=== PATIENT | male | born 1990 | race Caucasian/White ===

== ENCOUNTER 2019-05-11 01:45 | Inpatient (IN) | payer BC ==
[~2019-05-11] VITALS: Ht 175.3 cm; Wt 99.8 kg
[~2019-05-11 01:45] MED LIST: ERYT.5TO LEFTEYE; HYDACE5 PO; IBUP800 PO; INSLI100I; LEVSOD100
[2019-05-11] MEDS ORDERED: INSULIN LI100 UNIT/1 (02:02)
[2019-05-11 02:26] LABS: BASOPHILS ABSOLUTE AUTO 0.06 K/mm3 (0.00-0.23); BASOPHILS PERCENT AUTO 0 % (0-2); EOSINOPHILS ABSOLUTE AUTO 0.02 K/mm3 (0.00-0.68); EOSINOPHILS PERCENT AUTO 0 % (0-6); Hematocrit 52.7 % (37.0-53.0); Hemoglobin 17.2 g/dL (13.5-17.5); IMMATURE GRAN ABSOLUTE AUTO 0.13 K/mm3 (0.00-0.10); IMMATURE GRAN PERCENT AUTO 1 % (0-1); LYMPHOCYTES ABSOLUTE AUTO 0.93 K/mm3 (0.84-5.20); LYMPHOCYTES PERCENT AUTO 5 % (21-46); MONOCYTES ABSOLUTE AUTO 1.15 K/mm3 (0.16-1.47); MONOCYTES PERCENT AUTO 6 % (4-13); Mean Corpuscular HGB 30.9 pg (26.0-34.0); Mean Corpuscular HGB Conc 32.6 g/dL (31.5-36.5); Mean Corpuscular Volume 95 fL (80-100); Mean Platelet Volume 10.6 fL (9.1-12.4); NEUTROPHILS ABSOLUTE AUTO 16.26 K/mm3 (1.96-9.15); NEUTROPHILS PERCENT AUTO 88 % (41-73); Platelet Count 316 K/mm3 (150-400); RDW Standard Deviation 42.5 fL (35.1-46.3); Red Blood Cell Count 5.56 M/mm3 (4.30-5.90); White Blood Cell Count 18.55 K/mm3 (4.00-11.30)
[2019-05-11 02:44] LABS: Ethanol (Alcohol), Blood, Med <3 mg/dL
[2019-05-11 02:48] LABS: Alanine Aminotransfer (ALT/SGP 36 U/L (12-78); Albumin/Globulin Ratio 1.1 (0.8-1.8); Alk Phos 85 U/L (50-136); Anion Gap 26 mmol/L (6-16); Aspartate Aminotrans (AST/SGOT 28 U/L (12-37); Bilirubin, Total 0.7 mg/dL (0.1-1.0); Blood Urea Nitrogen 28 mg/dL (8-24); Bun/Creatinine Ratio 21.9 (12.0-20.0); CO2, Blood 8 mmol/L (21-32); Calcium, Blood 9.3 mg/dL (8.5-10.1); Chloride, Blood 96 mmol/L (98-108); Creatinine, Blood 1.28 mg/dL (0.60-1.20); Globulin, Blood 4.6 g/dL (2.2-4.0); Glomerular Filtration Rate >60 (60-); Glucose, Blood 471 mg/dL (70-99); Potassium, Blood 5.5 mmol/L (3.5-5.5); Sodium, Blood 130 mmol/L (136-145); Total Protein, Blood 9.6 g/dL (6.4-8.2)
--- NOTE | 2019-05-11 06:41 | NUR ---
ASSUMED CARE NOTE/END OF SHIFT. ASSUMED CARE OF PT AT 0540, RECEIVED REPORT FROM JAYLEN RAJAN RN. PT ARRIVED TO UNIT VIA STRETCHER. PT AMBULATED SELF TO HOSPITAL BED WITH STAND BY ASSISTANCE. PT UBSTEADY WITH AMBULATION. PT IS ALERT AND ORIENTEDX3. PT IS ABLE TO ANSWER QUESTIONS APPROPRIATLEY. PT IS ON RA WITH SPO2 @ 98% PT IN SINUS TACH WITH HR @ 115. PT DENIES ANY SOB OR CHEST PAIN AT THIS TIME. PT IS C/O NAUSEA, MEDICATED PT PER EMAR. ABDOMINAL TENDERNESS NOTED. BOWEL TONES HEARD IN ALL FOUR QUADRANTS. PT WAS ORIENTED TO ROOM, AND CALL LIGHT. PT HAS URINAL AT BEDSIDE. PT IS AFEBRILE. INSULIN DRIP @ 7U/HR, AND BANANA BAG @ 200ML/HR. WILL CONTINUE TO MONITOR PT UNTIL REPORT IS GIVEN TO ONCOMING SHIFT
[2019-05-11 07:54] LABS: Anion Gap 15 mmol/L (6-16); Blood Urea Nitrogen 23 mg/dL (8-24); Bun/Creatinine Ratio 24.8 (12.0-20.0); CO2, Blood 11 mmol/L (21-32); Calcium, Blood 8.4 mg/dL (8.5-10.1); Chloride, Blood 107 mmol/L (98-108); Creatinine, Blood 0.93 mg/dL (0.60-1.20); Glomerular Filtration Rate >60 (60-); Glucose, Blood 284 mg/dL (70-99); Potassium, Blood 5.4 mmol/L (3.5-5.5); Sodium, Blood 133 mmol/L (136-145)
[2019-05-11 11:15] LABS: BASOPHILS ABSOLUTE AUTO 0.03 K/mm3 (0.00-0.23); BASOPHILS PERCENT AUTO 0 % (0-2); EOSINOPHILS PERCENT AUTO 0 % (0-6); Hematocrit 46.3 % (37.0-53.0); Hemoglobin 15.3 g/dL (13.5-17.5); IMMATURE GRAN ABSOLUTE AUTO 0.06 K/mm3 (0.00-0.10); IMMATURE GRAN PERCENT AUTO 0 % (0-1); LYMPHOCYTES ABSOLUTE AUTO 0.75 K/mm3 (0.84-5.20); LYMPHOCYTES PERCENT AUTO 5 % (21-46); MONOCYTES ABSOLUTE AUTO 1.42 K/mm3 (0.16-1.47); MONOCYTES PERCENT AUTO 10 % (4-13); Mean Corpuscular HGB 30.5 pg (26.0-34.0); Mean Corpuscular Volume 92 fL (80-100); Mean Platelet Volume 10.3 fL (9.1-12.4); NEUTROPHILS ABSOLUTE AUTO 12.48 K/mm3 (1.96-9.15); NEUTROPHILS PERCENT AUTO 85 % (41-73); Platelet Count 241 K/mm3 (150-400); RDW Coefficient Variation 12.4 % (11.7-14.2); RDW Standard Deviation 41.8 fL (35.1-46.3); Red Blood Cell Count 5.02 M/mm3 (4.30-5.90); White Blood Cell Count 14.74 K/mm3 (4.00-11.30)
[2019-05-11 11:39] LABS: Anion Gap 10 mmol/L (6-16); Blood Urea Nitrogen 19 mg/dL (8-24); Bun/Creatinine Ratio 21.3 (12.0-20.0); CO2, Blood 18 mmol/L (21-32); Calcium, Blood 8.6 mg/dL (8.5-10.1); Chloride, Blood 107 mmol/L (98-108); Creatinine, Blood 0.89 mg/dL (0.60-1.20); Glomerular Filtration Rate >60 (60-); Glucose, Blood 219 mg/dL (70-99); Potassium, Blood 4.3 mmol/L (3.5-5.5); Sodium, Blood 135 mmol/L (136-145)
--- NOTE | 2019-05-11 12:05 | NUR ---
REASSESSMENT: PT HAS BEEN RESTING IN BED THROUGHOUT THE MORNING. HE SLEEPS WHEN UNDISTURBED, BUT WAKES EASILY. INSULIN GTT INFUSING AND BEING TITRATED PER CBG, SEE FLOW SHEET. LABS NORMALIZING, BUT CO2 STILL LOW. PT'S MOTHER CAME BY AND WAS UPDATED. CONTINUING TO MONITOR.
[2019-05-11 15:33] LABS: Anion Gap 6 mmol/L (6-16); Blood Urea Nitrogen 19 mg/dL (8-24); Bun/Creatinine Ratio 26.2 (12.0-20.0); CO2, Blood 20 mmol/L (21-32); Calcium, Blood 8.5 mg/dL (8.5-10.1); Chloride, Blood 108 mmol/L (98-108); Creatinine, Blood 0.73 mg/dL (0.60-1.20); Glomerular Filtration Rate >60 (60-); Glucose, Blood 175 mg/dL (70-99); Potassium, Blood 3.9 mmol/L (3.5-5.5); Sodium, Blood 134 mmol/L (136-145)
--- NOTE | 2019-05-11 16:46 | NUR ---
SHIFT SUMMARY: PT HAS CONTINUED TO REST THROUGHOUT THE SHIFT. DR. WU CAME BY AND GAVE ORDERS TO SWITCH PT TO SQ INSULIN WAS CO2 WAS 20. REPEAT BMP HAD CO2 OF 20 SO NPH GIVEN PER ORDERS AND WILL TURN OFF INSULIN GTT 30 MIN AFTER ADMIN PER DR. WU. PT REMAINS ALERT AND ORIENTED, LUNGS CLEAR, RA, SR WITH RATE IN THE 90S, BP STABLE. NO N/V SO DR. WU GAVE OK FOR PT TO HAVE CLEAR LIQUIDS AND ADVANCE TOLERATED. ONCE PT OFF OF INSULIN GTT DR. WU GAVE OORDER FOR MED WITHOUT TELE. NO OTHER REQUESTS FROM PT AT THIS TIME. CONTINUING TO MONITOR.
--- NOTE | 2019-05-11 21:18 | NUR ---
PT RESTING IN BED. DENIES PAIN, N/V, GALLAGHER, HALLUCINATIONS. SEE CIWA ASSESS. PT IS TOLERATING CL DIET WELL. OFFERED SNACK AFTER GIVING INSULIN PT DENIES FOR NOW. NO SIGN OF DISTRESS. CALL LIGHT IN REACH.
--- NOTE | 2019-05-11 22:00 | NUR ---
PT TRANSFERED TO ROOM 228 VIA W/C. ACCOMPANIED BY SUCTION DREDGE DUMPING SUPERVISOR. NO SIGN OF DISTRESS. REPORT GIVEN TO EFRA ARCHIBALD WHO WILL ASSUME CARE.
--- NOTE | 2019-05-11 22:12 | NUR ---
PT ARRIVED TO UNIT FROM ICU. PT AA0X4, VSS. LUNG SOUNDS CLEAR. PT REQUESTED SOLID FOOD. TOLERATING WELL CURRENTLY. PT SITTING UP IN BED, DENIES NEEDS AT THIS TIME. CALL LIGHT IN REACH ORIENTED TO UNIT.
--- NOTE | 2019-05-12 04:22 | NUR ---
SHIFT SUMMARY AAOX4, VSS. PT HAS BEEN RESTING IN BED SINCE TRANSFERING FROM ICU. BLOOD SUGARS IN 200'S CHECKED PER PT REQUEST AFTER EATING SANDWICH. CIWA SCORES 1 OR LESS DENIES AND ANXIETY OR HALLUCINATIONS. DENIES ANY NEEDS. CALL LIGHT IN REACH.
[2019-05-12 05:15] LABS: Anion Gap 7 mmol/L (6-16); Blood Urea Nitrogen 15 mg/dL (8-24); Bun/Creatinine Ratio 16.5 (12.0-20.0); CO2, Blood 25 mmol/L (21-32); Calcium, Blood 8.5 mg/dL (8.5-10.1); Chloride, Blood 105 mmol/L (98-108); Creatinine, Blood 0.91 mg/dL (0.60-1.20); Glomerular Filtration Rate >60 (60-); Glucose, Blood 205 mg/dL (70-99); Potassium, Blood 3.9 mmol/L (3.5-5.5); Sodium, Blood 137 mmol/L (136-145)
--- NOTE | 2019-05-12 13:52 | NUR ---
DISCHARGE SUMMARY: PT DISCHARGED HOME AT APPROX 1445. DISCHARGE INSTRUCTIONS GIVEN AND PT AWARE OF FOLLOW-UP APPOINTMENTS WITH PCP AND CLINICAL PSYCHIATRIST. REVIEWED WITH PATIENT REGARDING IMPORTANCE OF MAINTAINING BLOOD SUGARS BELOW 200 AND A HGB A1C OF LESS THAN 7%. PT ALSO EDUCATED ON WHEN TO CHECK BLOOD SUGARS AND WHAT S/SX TO BE AWARE OF. PT REPORTS UNDERSTANDING OF INFORMATION/EDUCATION GIVEN. PT WITHOUT QUESTIONS OR CONCERNS.
== END 2019-05-12 13:45 | disposition home or self-care (01) | DRG 638 ==
LOC: ER 01:45 → ICUE 04:13 → ERHOLD 04:13 → ICUE 05:36 → SURS 21:59
PROVIDERS: Emergency Medicine; Internal Medicine; ADMIT Hospitalist
DX: E10.10 Type 1 diabetes mellitus with ketoacidosis without coma (principal); E87.1 Hypo-osmolality and hyponatremia; F10.239 Alcohol dependence with withdrawal, unspecified; Z96.41 Presence of insulin pump (external) (internal); Z79.4 Long term (current) use of insulin; F41.9 Anxiety disorder, unspecified; F32.9 Major depressive disorder, single episode, unspecified
CPT/HCPCS: 36415; 80048; 80053; 82947; 85025; A9270-GY; G0480; J1815; J2060; J2405; J3411; J3475; J7030; J7042

== ENCOUNTER 2022-01-09 13:51 | Inpatient (IN) | payer OTHER ==
[~2022-01-09] VITALS: Ht 177.8 cm; Wt 93.0 kg
[~2022-01-09 13:51] MED LIST changes: +INSULIN LI100 UNIT/1
[2022-01-09 14:41] LABS: BASOPHILS ABSOLUTE AUTO 0.09 K/mm3 (0.00-0.23); BASOPHILS PERCENT AUTO 0 % (0-2); EOSINOPHILS PERCENT AUTO 0 % (0-6); Hemoglobin 22.8 g/dL (13.5-17.5); IMMATURE GRAN ABSOLUTE AUTO 0.13 K/mm3 (0.00-0.10); IMMATURE GRAN PERCENT AUTO 1 % (0-1); LYMPHOCYTES ABSOLUTE AUTO 0.88 K/mm3 (0.84-5.20); LYMPHOCYTES PERCENT AUTO 3 % (21-46); MONOCYTES ABSOLUTE AUTO 0.96 K/mm3 (0.16-1.47); MONOCYTES PERCENT AUTO 4 % (4-13); Mean Corpuscular HGB 30.8 pg (26.0-34.0); Mean Corpuscular HGB Conc 34.7 g/dL (31.5-36.5); Mean Corpuscular Volume 89 fL (80-100); Mean Platelet Volume 10.7 fL (9.1-12.4); NEUTROPHILS ABSOLUTE AUTO 23.59 K/mm3 (1.96-9.15); NEUTROPHILS PERCENT AUTO 92 % (41-73); Platelet Count 323 K/mm3 (150-400); RDW Coefficient Variation 13.6 % (11.7-14.2); Red Blood Cell Count 7.41 M/mm3 (4.30-5.90); White Blood Cell Count 25.65 K/mm3 (4.00-11.30)
[2022-01-09 14:42] LABS: Base Excess Venous -8.6 mmol/L; Bicarbonate Venous 18.9 mmol/L (24.0-30.0); Hematocrit 65.8 % (37.0-53.0); PCO2 Venous 32.6 mmHg (38-42); pH Blood Venous 7.33 (7.34-7.37)
[2022-01-09 15:15] LABS: Albumin, Blood 4.6 g/dL (3.4-5.0); Bilirubin, Total 1.9 mg/dL (0.1-1.0); Calcium, Blood 15.3 mg/dL (8.5-10.1); Creatinine, Blood 2.05 mg/dL (0.60-1.20); Globulin, Blood 4.7 g/dL (2.2-4.0); Potassium, Blood 3.8 mmol/L (3.5-5.5); Total Protein, Blood 9.3 g/dL (6.4-8.2)
[2022-01-09 17:34] LABS: Magnesium, Blood 2.2 mg/dL (1.6-2.4)
[2022-01-09 18:02] LABS: Beta-hydroxybutyrate 57.8 mg/dL (0.2-2.8); Bun/Creatinine Ratio 25.8 (12.0-20.0); Calcium, Blood 13.7 mg/dL (8.5-10.1); Creatinine, Blood 1.59 mg/dL (0.60-1.20); Phosphorus, Blood 3.5 mg/dL (2.5-4.9); Potassium, Blood 3.4 mmol/L (3.5-5.5)
[2022-01-09 19:13] LABS: Source, Urine Clean Catch
[2022-01-09 19:32] LABS: Appearance, Urine Clear (Clear); Bilirubin, Urine Neg (Neg); Blood, Urine 4+ (Neg); Color, Urine Amber (P-Yellow); Glucose Qualitative, Urine 4+ (Neg); Ketones, Urine 4+ (Neg); Leukocyte Esterase, Urine Neg (Neg); Nitrite, Urine Neg (Neg); Protein, Urine 3+ (Neg); Specific Gravity, Urine 1.015 (1.003-1.022); Urobilinogen, Urine NORM (Normal)
[2022-01-09 19:56] LABS: Bacteria Mod /hpf; Squamous Epithelial Cells Rare /hpf (Few)
[2022-01-09 20:44] LABS: Magnesium, Blood 2.3 mg/dL (1.6-2.4)
[2022-01-09 20:56] LABS: Calcium, Blood 13.4 mg/dL (8.5-10.1); Creatinine, Blood 1.32 mg/dL (0.60-1.20); Phosphorus, Blood 3.7 mg/dL (2.5-4.9); Potassium, Blood 3.8 mmol/L (3.5-5.5)
[2022-01-09 22:21] LABS: U Amphetamine Screen Not Detected; U Barbituate Screen Not Detected; U Benzodiazapine Screen Not Detected; U Buprenorphine Screen Not Detected; U Cannabinoids Screen Not Detected; U Cocaine Screen Not Detected; U Methadone Screen Not Detected; U Methamphetamine Screen Not Detected; U Opiates Screen Not Detected; U Oxycodone Screen Not Detected; U Phencyclidine Screen Not Detected; U Propoxyphene Screen Not Detected
[2022-01-10 01:50] LABS: BASOPHILS ABSOLUTE AUTO 0.07 K/mm3 (0.00-0.23); BASOPHILS PERCENT AUTO 0 % (0-2); EOSINOPHILS PERCENT AUTO 0 % (0-6); Hematocrit 52.5 % (37.0-53.0); Hemoglobin 18.5 g/dL (13.5-17.5); IMMATURE GRAN ABSOLUTE AUTO 0.15 K/mm3 (0.00-0.10); IMMATURE GRAN PERCENT AUTO 1 % (0-1); LYMPHOCYTES ABSOLUTE AUTO 0.79 K/mm3 (0.84-5.20); LYMPHOCYTES PERCENT AUTO 4 % (21-46); MONOCYTES ABSOLUTE AUTO 1.35 K/mm3 (0.16-1.47); MONOCYTES PERCENT AUTO 6 % (4-13); Mean Corpuscular HGB 30.9 pg (26.0-34.0); Mean Corpuscular HGB Conc 35.2 g/dL (31.5-36.5); Mean Corpuscular Volume 88 fL (80-100); Mean Platelet Volume 10.4 fL (9.1-12.4); NEUTROPHILS ABSOLUTE AUTO 20.32 K/mm3 (1.96-9.15); NEUTROPHILS PERCENT AUTO 90 % (41-73); Platelet Count 193 K/mm3 (150-400); RDW Coefficient Variation 12.9 % (11.7-14.2); RDW Standard Deviation 41.9 fL (35.1-46.3); Red Blood Cell Count 5.99 M/mm3 (4.30-5.90); White Blood Cell Count 22.68 K/mm3 (4.00-11.30)
[2022-01-10 02:15] LABS: Magnesium, Blood 1.7 mg/dL (1.6-2.4); Thyroid Stimulating Hormone 0.447 uIU/mL (0.360-4.800)
[2022-01-10 02:23] LABS: Bun/Creatinine Ratio 30.2 (12.0-20.0); Creatinine, Blood 0.93 mg/dL (0.60-1.20); Phosphorus, Blood 3.5 mg/dL (2.5-4.9); Potassium, Blood 4.2 mmol/L (3.5-5.5)
[2022-01-10 02:24] LABS: Calcium, Blood 10.5 mg/dL (8.5-10.1)
[2022-01-10 06:28] LABS: Hemoglobin 19.2 g/dL (13.5-17.5); Mean Corpuscular HGB 30.8 pg (26.0-34.0); Mean Corpuscular Volume 91 fL (80-100); Mean Platelet Volume 10.6 fL (9.1-12.4); Platelet Count 184 K/mm3 (150-400); RDW Coefficient Variation 13.1 % (11.7-14.2); RDW Standard Deviation 43.7 fL (35.1-46.3); Red Blood Cell Count 6.23 M/mm3 (4.30-5.90); White Blood Cell Count 25.03 K/mm3 (4.00-11.30)
--- NOTE | 2022-01-10 06:39 | NUR ---
PATIENT ARRIVED TO UNIT AT 2029. DIAGNOSIS OF DKA/ETOH WITHDRAWAL. PATENT LETHARGIC BUT ORIENTED. ATTACHED TO MONITORS AND ORIENTED TO UNIT. DURING SHIFT, PATIENT HAVING INCREASED BLOOD GLUCOSE. LABS DRAWN TO TREND ELECTROLYTES. EVENTS FOLLOWS. NEURO: PATIENT VERY LETHARGIC THROUGHOUT SHIFT BUT INTERMITTENTLY RESTLESS. COMPLAINTS OF DIZZINESS AND FEELING "TERRIBLE". NO COMPLAINTS OF PAIN. VERY FLAT AFFECT AND WITHDRAWN. FOLLOWS COMMANDS. CARDIAC: BP ELEVATED WITH NARROW PULSE PRESSURE. SINUS TACHYCARDIA WITH INVERTED T WAVE. AFEBRILE THROUGHOUT SHIFT. RESP: RA, LUNGS CLEAR GI: 2 EPISODES OF EMESIS. COMPLAINS OF FEELING BLOATED. NO BM FOR 3 DAYS. : VOIDS IN URINAL APPROPRIATELY SKIN: RASH ON BODY, PATIETN CLAIMS IT IS ALWAYS THERE, INFILTRATED IV SITE LEFT FOREARM. OTHER: WBC 25.5 ON ADMISSION, DECREASED SLIGHTLY. MD AWARE. CA+ ELEVATED BUT NORMALIZED AFTER ONE DOSE OF CALCITONIN ADMINISTERED. SLIDING SCALE INSULIN STARTED BLOOD GLUCOSE CONTINUING TO RISE OVERNIGHT.
[2022-01-10 06:47] LABS: Hematocrit 56.4 % (37.0-53.0)
[2022-01-10 06:58] LABS: Albumin, Blood 3.6 g/dL (3.4-5.0); Anion Gap 20 mmol/L (6-16); Blood Urea Nitrogen 25 mg/dL (8-24); Bun/Creatinine Ratio 26.7 (12.0-20.0); CO2, Blood 18 mmol/L (21-32); Calcium, Blood 10.3 mg/dL (8.5-10.1); Chloride, Blood 101 mmol/L (98-108); Creatinine, Blood 0.94 mg/dL (0.60-1.20); Glomerular Filtration Rate 112 (60-); Glucose, Blood 322 mg/dL (70-99); Phosphorus, Blood 3.5 mg/dL (2.5-4.9); Potassium, Blood 4.5 mmol/L (3.5-5.5); Sodium, Blood 139 mmol/L (136-145)
--- NOTE | 2022-01-10 07:20 | NUR ---
Received reprt from Noc RN. Patient is sleeping and awakened easily when entering room. He is alert and oriented and is able to communicate his needs. His speech is soft and mubbles his communication but understandable. He denies any current needs for nausea. He tolerates fluids without assistance and have told him to let me know when he can eat something small. It is stated he is SBA for mild unstable gate. He has IV to RFA and is infusing NS at 100 ml/hr. He is able to use urinal appropriatly. He is starting to have tremors and will start to assess CIWA. Will call and get started on Phenergren and Librium to help with withdrawls. STARK, but weak. Patient will need bowel protocol addressed..
[2022-01-10 08:23] LABS: BAND PERCENT MAN 1 % (0-8); BASOPHILS PERCENT MAN 0 % (0-2); EOSINOPHILS PERCENT MAN 0 % (0-6); MONOCYTES ABSOLUTE MAN 0.25 K/mm3 (0.16-1.47); MONOCYTES PERCENT MAN 1 % (4-13); NEUTROPHILS ABSOLUTE MAN 24.77 K/mm3 (1.96-9.15); SEG NEUTROPHILS PERCENT MAN 98 % (41-73); TOTAL CELLS COUNTED 100
--- NOTE | 2022-01-10 11:27 | NUR ---
Patient went and back from imaging and now fast back to sleep. CBG 346, 354 and covered early. he has tried to eat a little jello and yogurt. He got up with assist. PAULETTE 8. Just talked with Dr Whitmore and will continue to evaluate hourly CBG.
[2022-01-10 13:03] LABS: Albumin, Blood 3.2 g/dL (3.4-5.0); Albumin/Globulin Ratio 0.9 (0.8-1.8); Bilirubin, Total 1.4 mg/dL (0.1-1.0); Bun/Creatinine Ratio 28.5 (12.0-20.0); Calcium, Blood 9.8 mg/dL (8.5-10.1); Creatinine, Blood 0.84 mg/dL (0.60-1.20); Globulin, Blood 3.5 g/dL (2.2-4.0); Potassium, Blood 4.4 mmol/L (3.5-5.5); Total Protein, Blood 6.7 g/dL (6.4-8.2)
--- NOTE | 2022-01-10 14:48 | NUR ---
Patient has been resting. His HR has been climbing and called for order of ativan and gave some more Librium and 10 units humalog that was ordered. CBG 287.Anion gap closed again.
--- NOTE | 2022-01-10 15:30 | NUR ---
Patient continues to rest and awakens for care. CBG's low 200's. Doing Q2 cbg with SS. He has tolerated small amounts of snack. Mother was here and really worried and gave her updates. HR was 140 and is coming down slightly after Ativan and librium. CIWA remains about an 8. 1/2 NS at 250 ml/hr. He has 1100 yellow urine in urinal
--- NOTE | 2022-01-10 18:24 | NUR ---
Patient continues to sleep on 4L via NC and sats >90%. He has1/2 NS at 250 and will change to D5 at 75ml/hr now that CBG <200, last one 176. He is independent in bed with positioning. He has 20 ga IV to RFA and is infusing. He has mild tremors and CIWA 8 most of shift. He is Q2 CBG and coverage.
--- NOTE | 2022-01-11 05:51 | NUR ---
END OF SHIFT SUMMARY PT STABLE OVERNIGHT. NAUSEA RESOLVED. PT REPORTS FEELING BETTER AND MORE CLEAR AND HUNGRY. WOULD BENEFIT FROM ORDERED DIET AND SWITCHING BLOOD SUGARS TO AC/HS. WILL GIVE REPORT TO ONCOMING RN.
[2022-01-11 06:46] LABS: BASOPHILS ABSOLUTE AUTO 0.03 K/mm3 (0.00-0.23); BASOPHILS PERCENT AUTO 0 % (0-2); EOSINOPHILS ABSOLUTE AUTO 0.02 K/mm3 (0.00-0.68); EOSINOPHILS PERCENT AUTO 0 % (0-6); Hematocrit 51.5 % (37.0-53.0); Hemoglobin 17.7 g/dL (13.5-17.5); IMMATURE GRAN ABSOLUTE AUTO 0.09 K/mm3 (0.00-0.10); IMMATURE GRAN PERCENT AUTO 1 % (0-1); LYMPHOCYTES ABSOLUTE AUTO 1.96 K/mm3 (0.84-5.20); LYMPHOCYTES PERCENT AUTO 12 % (21-46); MONOCYTES ABSOLUTE AUTO 1.29 K/mm3 (0.16-1.47); MONOCYTES PERCENT AUTO 8 % (4-13); Mean Corpuscular HGB 31.2 pg (26.0-34.0); Mean Corpuscular HGB Conc 34.4 g/dL (31.5-36.5); Mean Corpuscular Volume 91 fL (80-100); Mean Platelet Volume 10.6 fL (9.1-12.4); NEUTROPHILS ABSOLUTE AUTO 13.29 K/mm3 (1.96-9.15); NEUTROPHILS PERCENT AUTO 80 % (41-73); Platelet Count 111 K/mm3 (150-400); RDW Coefficient Variation 12.9 % (11.7-14.2); RDW Standard Deviation 43.1 fL (35.1-46.3); Red Blood Cell Count 5.67 M/mm3 (4.30-5.90); White Blood Cell Count 16.68 K/mm3 (4.00-11.30)
[2022-01-11 07:03] LABS: Bun/Creatinine Ratio 20.6 (12.0-20.0); Calcium, Blood 9.5 mg/dL (8.5-10.1); Creatinine, Blood 0.68 mg/dL (0.60-1.20); Potassium, Blood 3.6 mmol/L (3.5-5.5)
--- NOTE | 2022-01-11 07:45 | NUR ---
Recieved re[port from Noc RN. Patient was sleeping upon entry and awakened easily and was able to communicate his needs, states feeling better. He is on RA and sats >90%. He has 20ga IV RFA and is infusing D5 at 75 ml/hr and will stop when bag runs out shortly. Dr Whitmore will be back to write transfer orders. He uses urinal appropriately. He states appitie is better and drinks plenty of liquids. CIWA about 3, mostly mild tremors. He is independent in bed with positioning and comfort. MARIAM.
--- NOTE | 2022-01-11 09:30 | NUR ---
Patient has been rest and awakens alert. He tolerated all am meds without difficulty. He will be AC/HS and started on Lantus. Independnet in room. He is med status and awaiting bed. Last CBG 176.
--- NOTE | 2022-01-11 11:30 | NUR ---
Patient continues to rest and awakens easily and participates with care. Mother at bedside. CBG 92 and awaiting ADA lunch tray. He remains independent in room and uses urinal appropriately with 1000 mls yellow urine out. He denies any nausea or pain currently.
--- NOTE | 2022-01-11 13:30 | NUR ---
No significat changes with patient. He tolerated lunch without difficulty. Denies nausea and or any needs
--- NOTE | 2022-01-11 17:18 | NUR ---
Patient IV in RFA went bad and CN started 18ga IV in CLAUDE. Meds changed to PO. CBG was 254 and coverage needed r/t 2 cups apple juice. Called rreport to 358 RN. Temp 97.0. Patient independent in room and SBA when up. All belongings and meds sent.
--- NOTE | 2022-01-11 18:25 | NUR ---
PATIENT TRANSFER FROM PCU 9, REPORT FROM ALMITA WATSON 1800, ALERT AND OREINTED, MAKES NEEDS KNOWN, NO DISTRESS, CALL LIGHT WITH IN REACH, DENIES PAIN, N/V, OR CP. COMPLAINED OF EPIGASTRIC PAIN, SMOOTHY ORDERED FOR PATIENT
--- NOTE | 2022-01-12 02:18 | NUR ---
PHYSICIAN COMMUNICATION CONTACTED DR ANTUNEZ TO NOTIFY HIM THAT THE PATIENT WAS REQUESTING SOMETHING TO HELP FOR HEARTBURN. HE ORDERED GI COCKTAIL EVERY SIX HOURS NEEDED.
[2022-01-12 04:39] LABS: BASOPHILS ABSOLUTE AUTO 0.02 K/mm3 (0.00-0.23); BASOPHILS PERCENT AUTO 0 % (0-2); EOSINOPHILS ABSOLUTE AUTO 0.02 K/mm3 (0.00-0.68); EOSINOPHILS PERCENT AUTO 0 % (0-6); Hematocrit 52.1 % (37.0-53.0); Hemoglobin 17.2 g/dL (13.5-17.5); IMMATURE GRAN PERCENT AUTO 1 % (0-1); LYMPHOCYTES ABSOLUTE AUTO 1.99 K/mm3 (0.84-5.20); LYMPHOCYTES PERCENT AUTO 18 % (21-46); MONOCYTES ABSOLUTE AUTO 1.21 K/mm3 (0.16-1.47); MONOCYTES PERCENT AUTO 11 % (4-13); Mean Corpuscular HGB 30.6 pg (26.0-34.0); Mean Corpuscular Volume 93 fL (80-100); Mean Platelet Volume 11.1 fL (9.1-12.4); NEUTROPHILS ABSOLUTE AUTO 7.93 K/mm3 (1.96-9.15); NEUTROPHILS PERCENT AUTO 70 % (41-73); Platelet Count 107 K/mm3 (150-400); RDW Coefficient Variation 12.5 % (11.7-14.2); RDW Standard Deviation 42.8 fL (35.1-46.3); Red Blood Cell Count 5.62 M/mm3 (4.30-5.90); White Blood Cell Count 11.27 K/mm3 (4.00-11.30)
[2022-01-12 04:58] LABS: Calcium, Blood 10.5 mg/dL (8.5-10.1); Creatinine, Blood 0.79 mg/dL (0.60-1.20); Potassium, Blood 4.3 mmol/L (3.5-5.5)
--- NOTE | 2022-01-12 05:39 | NUR ---
SHIFT SUMMARY PATIENT ALERT AND ORIENTED X 3-4. HAD NO COMPLAINTS OF PAIN OR SHORTNESS OF BREATH. WAS CONSERNED ABOUT HIS BLOOD SUGAR BEING TOO HIGH ASKING WHY HE WASN'T ON AN INSULIN DRIP AND FOR MEDICAL STAFF TO CHECK HIS BLOOD SUGAR TO ENSURE IT WAS OKAY. CALL LIGHT WITHIN REACH. REPORT GIVEN TO ONCOMING RN.
[2022-01-12 16:01] LABS: Albumin, Blood 3.2 g/dL (3.4-5.0); Anion Gap 18 mmol/L (6-16); Blood Urea Nitrogen 20 mg/dL (8-24); CO2, Blood 13 mmol/L (21-32); Calcium, Blood 9.4 mg/dL (8.5-10.1); Chloride, Blood 104 mmol/L (98-108); Creatinine, Blood 0.74 mg/dL (0.60-1.20); Glomerular Filtration Rate 125 (60-); Glucose, Blood 276 mg/dL (70-99); Phosphorus, Blood 3.2 mg/dL (2.5-4.9); Potassium, Blood 5.1 mmol/L (3.5-5.5); Sodium, Blood 135 mmol/L (136-145)
--- NOTE | 2022-01-12 18:50 | NUR ---
SHIFT SUMMARY PT A&OX4 AND COOPERATIVE. PT STATED FEELING NAUSEOUS AND HAD A COUPLE EPISODES OF VOMTTING. PT STATED FEELING "DEFEATED" TODAY. INDEPENDENT IN ROOM. FAMILY AT BEDSIDE FOR MOST OF DAY. PT'S BLOOD SUGAR WAS ELEVATED MOST OF DAY. DR. ORTIZ WAS IN TO SEE PT AND REQUESTED MOM TO BRING IN PT'S HOME INSULIN PUMP. PT NOW ADMINISTERING INSULIN VIA PERSONAL PUMP. PT HAS BEEN SLEEPING LATE IN THE AFTERNONN AND HAS HAD NO MORE EPISODES OF VOMITTING. BED IN LOWEST POSTITION AND CALL LIGHT IN REACH.
[2022-01-13 05:56] LABS: Albumin, Blood 2.6 g/dL (3.4-5.0); Anion Gap 8 mmol/L (6-16); Blood Urea Nitrogen 12 mg/dL (8-24); Bun/Creatinine Ratio 17.6 (12.0-20.0); CO2, Blood 23 mmol/L (21-32); Calcium, Blood 8.3 mg/dL (8.5-10.1); Chloride, Blood 108 mmol/L (98-108); Creatinine, Blood 0.68 mg/dL (0.60-1.20); Glomerular Filtration Rate 128 (60-); Glucose, Blood 124 mg/dL (70-99); Phosphorus, Blood 2.2 mg/dL (2.5-4.9); Potassium, Blood 3.4 mmol/L (3.5-5.5); Sodium, Blood 139 mmol/L (136-145)
--- NOTE | 2022-01-13 07:24 | NUR ---
PLAYGROUND DIRECTOR SUMMARY AOX/4. ADMIT W/DKA. PT WEARING INSULIN PUMP FROM HOME WITH DOCTORS KNOWLEDGE; PT REPORTED TO THIS NURSE THE BASAL RATE WAS AT 1.2. CONT W/Q4 CBG TEST. PT HAD LOW BS OF 54; PROVIDED APPLE JUICE AND RECHECKED; BS 76. DOC ORDERED 5% DEXTROSE IV INFUSION AND DC'D NS INFUSION; PT DECLINED AND STATED HE WANTED TO ADJUST THE BASAL RATE. CALL TO HOSPITALIST; NEW ORDER TO DC ALL FLUIDS. PT RESTED T/O THE NIGHT. PT ABLE TO ADVOCATE FOR SELF; CALL LIGHT IN REACH.
--- NOTE | 2022-01-13 18:24 | NUR ---
SHIFT SUMMARY PT A&OX4 AND COOPERATIVE OF CARE. NO ACUTE CHANGES DURING THE DAY. PT CONTINUES TO C/O CHEST PAIN THAT IS WORSE WITH DEEP BREATHS OR EATING. DR ORTIZ NOTIFIED AND ORDERS WHERE GIVEN. PT INDPENDENT IN ROOM. PT DENIES N/V TODAY. PT CONTINUES TO CONTROL BLOOD GLUCOSE WITH HOME INSULIN PUMP. FAMILY AT BEDSIDE DURING THE AFTERNOON. BED IN LOWEST POSITION AND CALL LIGHT IN REACH.
--- NOTE | 2022-01-14 03:46 | NUR ---
SHIFT SUMMARY PATIENT IS ALERT AND ORIENTED. PATIENT HAS NOT HAD ANY ACUTE EVENTS THIS SHIFT. VITAL SIGNS REVIEWED. PATIENT IS BEEN GETTING Q4 CBG. PATIENT HAS COMPLAINED OF CHEST PAIN ONCE AND MEDICATED PER EMAR. PATIENT HAS NOT COMPLAINED OF NAUSEA, VOMITTING, OR SOB THIS SHIFT. PATIENT HAS AN INSULIN PUMP AND HAS BEEN USING IT WITHOUT INCIDENT. BED IN LOCKED AND LOWEST POSITION. CALL LIGHT IN PLACE. WILL MONITOR UNTIL SHIFT CHANGE.
[2022-01-14] MEDS ORDERED: OXYC10TA19 PO (10:26)
[2022-01-14] MEDS ORDERED: PANT40 PO (10:27)
[2022-01-14] MEDS ORDERED: CARAFATE1 GM/10 M1 PO (10:29)
--- NOTE | 2022-01-14 12:39 | NUR ---
DISCHARGE NOTE PT D/C'D HOME. DISCHARGE INSTRUCTIONS, MEDICATION PERSCRIPTION, AND EDUCATION GIVEN TO PT. PT VERBALIZED NO NEW QUESTIONS OR CONCERNS. ALL BELONGINGS SENT HOME WITH PT. POWER GLIDE REMOVED. CATHETER TIP INTACT AND PT TOLERATED WELL. WALKED WITH PT TO WAITING VEHICLE.
== END 2022-01-14 12:03 | disposition home or self-care (01) | DRG 637 ==
LOC: ER 13:51 → PCU 16:20 → MEDS 16:20 → PCU 20:32 → MEDS 01-11 18:02
PROVIDERS: Family Medicine; Physician Assistant; ADMIT Internal Medicine
DX: E10.10 Type 1 diabetes mellitus with ketoacidosis without coma (principal); K22.6 Gastro-esophageal laceration-hemorrhage syndrome; F10.239 Alcohol dependence with withdrawal, unspecified; N17.9 Acute kidney failure, unspecified; K59.00 Constipation, unspecified; E86.0 Dehydration; E10.65 Type 1 diabetes mellitus with hyperglycemia; E83.52 Hypercalcemia; G47.00 Insomnia, unspecified; I10 Essential (primary) hypertension; F41.8 Other specified anxiety disorders; Z88.0 Allergy status to penicillin; Z79.4 Long term (current) use of insulin
CPT/HCPCS: 36415; 71046; 74018; 80048; 80053; 80069; 81001; 82010; 82330; 82803; 82947; 83036; 83605; 83735; 84100; 84443; 85025; 87086; 93005; 93010; 96365; 96366; 96367; 96375; 96376; 99285-25; A9270; J0630; J1644; J1815; J2060; J2405; J3411; J3480; J7030; J7060; J7070

== ENCOUNTER 2022-12-16 23:41 | Inpatient (IN) | payer OTHER ==
[~2022-12-16] VITALS: Ht 175.3 cm; Wt 96.3 kg
[~2022-12-16 23:41] MED LIST changes: +CARAFATE1 GM/10 M1 PO; +OXYC10TA19 PO; +PANT40 PO
[2022-12-17] VITALS (11 sets, daily range): BP systolic 112–138; BP diastolic 83–107
[2022-12-17 00:41] LABS: BASOPHILS ABSOLUTE AUTO 0.03 K/mm3 (0.00-0.23); BASOPHILS PERCENT AUTO 0 % (0-2); EOSINOPHILS PERCENT AUTO 0 % (0-6); Hemoglobin 19.4 g/dL (13.5-17.5); IMMATURE GRAN ABSOLUTE AUTO 0.04 K/mm3 (0.00-0.10); IMMATURE GRAN PERCENT AUTO 0 % (0-1); LYMPHOCYTES ABSOLUTE AUTO 1.02 K/mm3 (0.84-5.20); LYMPHOCYTES PERCENT AUTO 8 % (21-46); MONOCYTES ABSOLUTE AUTO 0.99 K/mm3 (0.16-1.47); MONOCYTES PERCENT AUTO 8 % (4-13); Mean Corpuscular HGB 30.6 pg (26.0-34.0); Mean Corpuscular HGB Conc 33.4 g/dL (31.5-36.5); Mean Corpuscular Volume 91 fL (80-100); Mean Platelet Volume 10.2 fL (9.1-12.4); NEUTROPHILS PERCENT AUTO 83 % (41-73); Platelet Count 257 K/mm3 (150-400); RDW Standard Deviation 46.6 fL (35.1-46.3); Red Blood Cell Count 6.35 M/mm3 (4.30-5.90); White Blood Cell Count 12.48 K/mm3 (4.00-11.30)
[2022-12-17 01:01] LABS: Alanine Aminotransfer (ALT/SGP 152 U/L (12-78); Alk Phos 90 U/L (50-136); Anion Gap 21 mmol/L (6-16); Aspartate Aminotrans (AST/SGOT 62 U/L (12-37); Bilirubin, Total 1.1 mg/dL (0.1-1.0); Blood Urea Nitrogen 16 mg/dL (8-24); Bun/Creatinine Ratio 15.7 (12.0-20.0); CO2, Blood 11 mmol/L (21-32); Chloride, Blood 101 mmol/L (98-108); Creatinine, Blood 1.02 mg/dL (0.60-1.20); Globulin, Blood 4.8 g/dL (2.2-4.0); Glomerular Filtration Rate 101 (60-); Glucose, Blood 375 mg/dL (70-99); Potassium, Blood 4.8 mmol/L (3.5-5.5); Sodium, Blood 133 mmol/L (136-145); Total Protein, Blood 9.5 g/dL (6.4-8.2)
[2022-12-17 01:21] LABS: Albumin, Blood 4.7 g/dL (3.4-5.0)
[2022-12-17 02:06] LABS: Magnesium, Blood 2.5 mg/dL (1.6-2.4)
[2022-12-17 02:38] LABS: Bicarbonate Venous 14.9 mmol/L (24.0-30.0); PCO2 Venous 30.3 mmHg (38-42); pH Blood Venous 7.25 (7.34-7.37)
[2022-12-17 03:26] LABS: Beta-hydroxybutyrate 71.8 mg/dL (0.2-2.8)
[2022-12-17 03:33] LABS: Ethanol (Alcohol), Blood, Med <3 mg/dL
[2022-12-17 05:25] LABS: Calcium, Ionized (POC) 1.21 mmol/L (1.10-1.46); Chloride (POC) 111 mmol/L (98-108); Creatinine (POC) 0.9 mg/dL (0.8-1.3); Glucose (ISTAT POC) 261 mg/dL (70-99); Potassium (POC) 5.8 mmol/L (3.5-5.5); Sodium (POC) 140 mmol/L (135-148); Total CO2 (POC) 18 mmol/L (21-32)
[2022-12-17 06:25] LABS: Albumin, Blood 3.5 g/dL (3.4-5.0); Albumin/Globulin Ratio 0.9 (0.8-1.8); Bilirubin, Total 0.9 mg/dL (0.1-1.0); Bun/Creatinine Ratio 15.9 (12.0-20.0); Creatinine, Blood 0.94 mg/dL (0.60-1.20); Globulin, Blood 3.9 g/dL (2.2-4.0); Potassium, Blood 5.8 mmol/L (3.5-5.5)
[2022-12-17 06:26] LABS: Calcium, Blood 8.8 mg/dL (8.5-10.1); Total Protein, Blood 7.4 g/dL (6.4-8.2)
[2022-12-17 09:13] LABS: BASOPHILS ABSOLUTE AUTO 0.02 K/mm3 (0.00-0.23); BASOPHILS PERCENT AUTO 0 % (0-2); EOSINOPHILS PERCENT AUTO 0 % (0-6); Hematocrit 48.9 % (37.0-53.0); Hemoglobin 16.3 g/dL (13.5-17.5); IMMATURE GRAN ABSOLUTE AUTO 0.07 K/mm3 (0.00-0.10); IMMATURE GRAN PERCENT AUTO 1 % (0-1); LYMPHOCYTES ABSOLUTE AUTO 1.31 K/mm3 (0.84-5.20); LYMPHOCYTES PERCENT AUTO 12 % (21-46); MONOCYTES ABSOLUTE AUTO 1.55 K/mm3 (0.16-1.47); MONOCYTES PERCENT AUTO 14 % (4-13); Mean Corpuscular HGB 30.4 pg (26.0-34.0); Mean Corpuscular HGB Conc 33.3 g/dL (31.5-36.5); Mean Corpuscular Volume 91 fL (80-100); Mean Platelet Volume 10.4 fL (9.1-12.4); NEUTROPHILS ABSOLUTE AUTO 7.79 K/mm3 (1.96-9.15); NEUTROPHILS PERCENT AUTO 73 % (41-73); Platelet Count 200 K/mm3 (150-400); RDW Standard Deviation 47.1 fL (35.1-46.3); Red Blood Cell Count 5.37 M/mm3 (4.30-5.90); White Blood Cell Count 10.74 K/mm3 (4.00-11.30)
[2022-12-17 12:32] LABS: Albumin, Blood 3.3 g/dL (3.4-5.0); Bun/Creatinine Ratio 13.9 (12.0-20.0); Calcium, Blood 8.4 mg/dL (8.5-10.1); Creatinine, Blood 0.94 mg/dL (0.60-1.20); Globulin, Blood 3.3 g/dL (2.2-4.0); Potassium, Blood 4.8 mmol/L (3.5-5.5); Total Protein, Blood 6.6 g/dL (6.4-8.2)
--- NOTE | 2022-12-17 17:28 | NUR ---
ASSUMPTION OF CARE/ SUMMARY PT ARRIVED TO ICU FROM ER SECONDARY TO ETOH W/D AND DKA. AMBULATES TO BED WITHOUT ASSISTANCE. A&OX4. C/O MILD NAUSEA, BLOATING, NO VOMITING. CIWA'S <4, LAST ATIVAN ADMINSTERED >12HRS AGO. INSULIN GTT @ 2U/HR. Q2 CBG'S. NO OTHER COMPLAINTS/ CONCERNS.
[2022-12-17 17:29] LABS: Albumin, Blood 3.2 g/dL (3.4-5.0); Albumin/Globulin Ratio 1.1 (0.8-1.8); Bilirubin, Total 1.1 mg/dL (0.1-1.0); Calcium, Blood 8.3 mg/dL (8.5-10.1); Creatinine, Blood 0.87 mg/dL (0.60-1.20); Potassium, Blood 3.8 mmol/L (3.5-5.5); Total Protein, Blood 6.2 g/dL (6.4-8.2)
--- NOTE | 2022-12-17 19:39 | NUR ---
ASSUMED CARE PT IS A&O X4; SPO2 >92% ON RA; MAP >65. INSULIN GTT INFUSING. PT DENIES ANY CP, SOB, OR NAUSEA; JUST COMPLAINS OF GROGGINESS. CIWA OF 3.
[2022-12-18] VITALS (9 sets, daily range): BP systolic 130–157; BP diastolic 90–112
--- NOTE | 2022-12-18 00:07 | NUR ---
UPDATE PT GIVEN EDUCATION ON RISKS/IMPACT OF CONTINUING PATTERN OF DRINKING (PT STATES HE DRINKS A 1/5TH OR MORE OF VODKA A DAY FOR 3-4 DAYS, TAKES A 2 DAY BREAK, THEN RESUMES DRINKING. DISCUSSION W/ PT ABOUT MENTAL HEALTH AND PT STATES THAT HE DEALS W/ DEPRESSION, BUT HAS NOT TALKED TO ANY HEALTHCARE PROFESSIONAL ABOUT IT. EDUCATED PT ON ADVOCATING FOR HIS MENTAL HEALTH AND TALKING W/ PRIMARY CARE PROVIDER FOR POTENTIAL TREATMENT/REFERRAL TO THERAPIST. CARE MANAGEMENT ORDER ALSO PUT IN TO HELP W/ RESOURCES.
[2022-12-18 00:27] LABS: Albumin, Blood 3.4 g/dL (3.4-5.0); Bilirubin, Total 1.2 mg/dL (0.1-1.0); Bun/Creatinine Ratio 16.5 (12.0-20.0); Calcium, Blood 8.3 mg/dL (8.5-10.1); Creatinine, Blood 0.85 mg/dL (0.60-1.20); Globulin, Blood 3.3 g/dL (2.2-4.0); Potassium, Blood 3.6 mmol/L (3.5-5.5); Total Protein, Blood 6.7 g/dL (6.4-8.2)
[2022-12-18 05:00] LABS: BASOPHILS ABSOLUTE AUTO 0.02 K/mm3 (0.00-0.23); BASOPHILS PERCENT AUTO 0 % (0-2); EOSINOPHILS ABSOLUTE AUTO 0.06 K/mm3 (0.00-0.68); EOSINOPHILS PERCENT AUTO 1 % (0-6); Hematocrit 44.6 % (37.0-53.0); Hemoglobin 14.9 g/dL (13.5-17.5); IMMATURE GRAN ABSOLUTE AUTO 0.03 K/mm3 (0.00-0.10); IMMATURE GRAN PERCENT AUTO 0 % (0-1); LYMPHOCYTES PERCENT AUTO 20 % (21-46); MONOCYTES ABSOLUTE AUTO 0.96 K/mm3 (0.16-1.47); MONOCYTES PERCENT AUTO 11 % (4-13); Mean Corpuscular HGB 30.3 pg (26.0-34.0); Mean Corpuscular HGB Conc 33.4 g/dL (31.5-36.5); Mean Corpuscular Volume 91 fL (80-100); Mean Platelet Volume 10.7 fL (9.1-12.4); NEUTROPHILS ABSOLUTE AUTO 5.73 K/mm3 (1.96-9.15); NEUTROPHILS PERCENT AUTO 67 % (41-73); Platelet Count 148 K/mm3 (150-400); RDW Coefficient Variation 13.4 % (11.7-14.2); RDW Standard Deviation 45.1 fL (35.1-46.3); Red Blood Cell Count 4.91 M/mm3 (4.30-5.90)
[2022-12-18 05:12] LABS: Albumin, Blood 3.4 g/dL (3.4-5.0); Anion Gap 8 mmol/L (6-16); Blood Urea Nitrogen 13 mg/dL (8-24); Bun/Creatinine Ratio 15.9 (12.0-20.0); CO2, Blood 26 mmol/L (21-32); Calcium, Blood 8.9 mg/dL (8.5-10.1); Chloride, Blood 102 mmol/L (98-108); Creatinine, Blood 0.82 mg/dL (0.60-1.20); Glomerular Filtration Rate 120 (60-); Glucose, Blood 230 mg/dL (70-99); Magnesium, Blood 2.3 mg/dL (1.6-2.4); Phosphorus, Blood 1.9 mg/dL (2.5-4.9); Potassium, Blood 3.9 mmol/L (3.5-5.5); Sodium, Blood 136 mmol/L (136-145)
--- NOTE | 2022-12-18 05:43 | NUR ---
SHIFT SUMMARY PT A&O X4; VSS. PT RESTED QUIETLY T/O NIGHT. STATES HE FEELS "BETTER". PT DENIES CP, SOB, OR NAUSEA. CIWA <1-2. PT'S ONLY COMPLAINT IS HE HAS SOME WEAKNESS, BUT STATES THAT IT'S NORMAL FOR HIM AFTER RECOVERING THROUGH AN EVENT LIKE THIS. NO ACUTE EVENTS OVERNIGHT. INSULIN GTT.
--- NOTE | 2022-12-18 07:17 | NUR ---
ASSUMED CARE: PT AWAKE, NSR AT 95 AT THIS TIME. ON RA. 2.5 UNITS INSULIN/HR AT THIS TIME. DR ORTIZ CAME TO SEE PT AND INSTRUCTED HIM TO BRING IN HOME INSULIN PUMP AND WILL LIKELY DC HOME TODAY. NO ACUTE NEEDS OR CONCERNS AT THIS TIME.
--- NOTE | 2022-12-18 08:10 | NUR ---
PT'S MOTHER BROUGHT IN HOME INSULIN PUMP. IV INSULIN DISCONNECTED PER ORDERS FROM DR ORTIZ AND HOME PUMP CONNECTED PER PT. INSULIN PUMP MANAGEMENT CONTRACT GIVEN TO PT FOR REVIEW. DR ORTIZ INSTRUCTS TO CONTINUE MONITORING BLOOD SUGARS AND WILL SEE PT LATER THIS MORNING FOR DISCHARGE PLANS.
--- NOTE | 2022-12-18 09:23 | NUR ---
DR ORTIZ RETURNED TO SEE PT. STATES PLANS FOR DC. PT AWARE
[2022-12-18] MEDS ORDERED: PANT40 PO (09:44)
[2022-12-18] MEDS ORDERED: ESCI10 PO (09:44)
[2022-12-18] MEDS ORDERED: FOLI1 PO (09:44)
[2022-12-18] MEDS ORDERED: B-1100 M1 PO (09:44)
[2022-12-18] MEDS ORDERED: ONDA4 PO (09:44)
--- NOTE | 2022-12-18 10:38 | NUR ---
DISCHARGE: DR ORTIZ CAME TO SEE PT AND GAVE PT AND HIS MOTHER DISCHARGE INSTRUCTIONS. PT AWARE OF NEW MEDICATIONS WELL FOLLOW UP APPOINTMENTS. ADVICED TO STOP DRINKING AND THAT ALCOHOL CAN IMPACT CBGS. AWARE THAT PT HAS ELEVATED HR WITH ACTIVITY. IV DC'D WNL. PT ESCORTED OUT VIA WHEEL CHAIR. DENIES NEEDS OR CONCERNS AT THIS TIME.
== END 2022-12-18 10:48 | disposition home or self-care (01) | DRG 896 ==
LOC: ER 23:41 → ERHOLD 23:42 → ICUE 12-17 13:31
PROVIDERS: Family Medicine; Physician Assistant; Student in an Organized Health Care Education/Training Program; ADMIT Internal Medicine
PROC: HZ2ZZZZ Detoxification Services for Substance Abuse Treatment (ICD-10-PCS; principal; 2022-12-18)
DX: F10.239 Alcohol dependence with withdrawal, unspecified (principal); E10.10 Type 1 diabetes mellitus with ketoacidosis without coma; E87.1 Hypo-osmolality and hyponatremia; R74.01 Elevation of levels of liver transaminase levels; E86.0 Dehydration; F41.9 Anxiety disorder, unspecified; D72.829 Elevated white blood cell count, unspecified; G47.00 Insomnia, unspecified; I10 Essential (primary) hypertension; F32.A Depression, unspecified; Z88.1 Allergy status to other antibiotic agents; Z79.4 Long term (current) use of insulin
CPT/HCPCS: 36415; 80047; 80053; 80069; 82010; 82803; 82947; 83036; 83735; 85014; 85025; 93005; 93010; 96361; 96365; 96368; 96372-59; 96375; 96376; 99285-25; C9113; G0480; J1650; J1815; J2060; J2405; J3411; J3480; J7030; J7050; J7070

== ENCOUNTER → 2024-10-23 | Outpatient (CLI) | payer OTHER ==
[~2024-10-23] MED LIST changes: +B-1100 M1 PO; +ESCI10 PO; +FOLI1 PO; +ONDA4 PO; +TRAZ100 PO
[2024-10-23 09:39] LABS: BASOPHILS ABSOLUTE AUTO 0.03 K/mm3 (0.00-0.23); BASOPHILS PERCENT AUTO 0 % (0-2); EOSINOPHILS ABSOLUTE AUTO 0.14 K/mm3 (0.00-0.68); EOSINOPHILS PERCENT AUTO 1 % (0-6); Hematocrit 46.0 % (37.0-53.0); Hemoglobin 15.9 g/dL (13.5-17.5); IMMATURE GRAN ABSOLUTE AUTO 0.10 K/mm3 (0.00-0.10); IMMATURE GRAN PERCENT AUTO 1 % (0-1); LYMPHOCYTES ABSOLUTE AUTO 1.23 K/mm3 (0.84-5.20); LYMPHOCYTES PERCENT AUTO 12 % (21-46); MONOCYTES ABSOLUTE AUTO 1.17 K/mm3 (0.16-1.47); MONOCYTES PERCENT AUTO 11 % (4-13); Mean Corpuscular HGB Conc 34.6 g/dL (31.5-36.5); Mean Corpuscular Volume 88 fL (80-100); NEUTROPHILS ABSOLUTE AUTO 7.86 K/mm3 (1.96-9.15); NEUTROPHILS PERCENT AUTO 75 % (41-73); NRBC ABSOLUTE 0.00 K/mm3 (0.00-0.02); NRBC Auto 0.0 /100 WBC (0.0-0.2); Platelet Count 176 K/mm3 (150-400); RDW Coefficient Variation 12.5 % (11.7-14.2); RDW Standard Deviation 40.2 fL (35.1-46.3)
[2024-10-23 09:50] LABS: Alanine Aminotransfer (ALT/SGP 34.0 U/L (12-78); Albumin, Blood 3.7 g/dL (3.4-5.0); Albumin/Globulin Ratio 0.8 (0.8-1.8); Anion Gap 16.0 mmol/L (3-11); Aspartate Aminotrans (AST/SGOT 26.0 U/L (12-37); Bilirubin, Total 1.0 mg/dL (0.1-1.0); Blood Urea Nitrogen 8.0 mg/dL (8-24); CO2, Blood 25.0 mmol/L (21-32); Calcium, Blood 9.8 mg/dL (8.5-10.1); Chloride, Blood 96.0 mmol/L (98-108); Creatinine, Blood 1.27 mg/dL (0.60-1.20); Globulin, Blood 4.7 g/dL (2.2-4.0); Glucose, Blood 267.0 mg/dL (70-99); Potassium, Blood 4.3 mmol/L (3.5-5.5); Sodium, Blood 133.0 mmol/L (136-145); Total Protein, Blood 8.4 g/dL (6.4-8.2)
== END ==
LOC: LAB 09:35 → LAB SHORT 09:35
PROVIDERS: Physician Assistant Medical
DX: L03.317 Cellulitis of buttock (principal)
CPT/HCPCS: 80053; 85025

== ENCOUNTER 2024-10-24 07:54 | Inpatient (IN) | payer OTHER ==
[~2024-10-24] VITALS: Ht 177.8 cm; Wt 100.7 kg
[~2024-10-24 07:54] MED LIST changes: -ESCI10 PO; +ESCI20 PO; -TRAZ100 PO
[2024-10-24] MEDS ORDERED: NS 1,000 ML IV SCH ×2 (08:20→10:00)
[2024-10-24] MEDS ORDERED: TRAZ100 PO (08:26)
[2024-10-24 08:56] LABS: pH Blood Venous 7.37 (7.34-7.37)
[2024-10-24] MEDS ORDERED: Ketorolac Tromethamine 15mg Vial IV ONE (09:00)
[2024-10-24 09:02] LABS: BASOPHILS ABSOLUTE AUTO 0.06 K/mm3 (0.00-0.23); BASOPHILS PERCENT AUTO 1 % (0-2); EOSINOPHILS ABSOLUTE AUTO 0.09 K/mm3 (0.00-0.68); EOSINOPHILS PERCENT AUTO 1 % (0-6); Hematocrit 44.4 % (37.0-53.0); Hemoglobin 15.3 g/dL (13.5-17.5); IMMATURE GRAN ABSOLUTE AUTO 0.10 K/mm3 (0.00-0.10); IMMATURE GRAN PERCENT AUTO 1 % (0-1); LYMPHOCYTES ABSOLUTE AUTO 1.41 K/mm3 (0.84-5.20); LYMPHOCYTES PERCENT AUTO 11 % (21-46); MONOCYTES ABSOLUTE AUTO 1.70 K/mm3 (0.16-1.47); MONOCYTES PERCENT AUTO 13 % (4-13); Mean Corpuscular HGB Conc 34.5 g/dL (31.5-36.5); Mean Corpuscular Volume 90 fL (80-100); NEUTROPHILS ABSOLUTE AUTO 9.57 K/mm3 (1.96-9.15); NEUTROPHILS PERCENT AUTO 74 % (41-73); NRBC ABSOLUTE 0.00 K/mm3 (0.00-0.02); NRBC Auto 0.0 /100 WBC (0.0-0.2); Platelet Count 126 K/mm3 (150-400); RDW Coefficient Variation 12.5 % (11.7-14.2); RDW Standard Deviation 41.1 fL (35.1-46.3)
[2024-10-24 09:23] LABS: Alanine Aminotransfer (ALT/SGP 26 U/L (12-78); Albumin, Blood 3.3 g/dL (3.4-5.0); Albumin/Globulin Ratio 0.7 (0.8-1.8); Anion Gap 14 mmol/L (3-11); Aspartate Aminotrans (AST/SGOT 36 U/L (12-37); Bilirubin, Total 1.1 mg/dL (0.1-1.0); Blood Urea Nitrogen 12 mg/dL (8-24); CO2, Blood 22 mmol/L (21-32); Calcium, Blood 9.2 mg/dL (8.5-10.1); Chloride, Blood 97 mmol/L (98-108); Creatinine, Blood 0.97 mg/dL (0.60-1.20); Ethanol (Alcohol), Blood, Med <3 mg/dL; Globulin, Blood 4.9 g/dL (2.2-4.0); Glucose, Blood 361 mg/dL (70-99); Magnesium, Blood 1.7 mg/dL (1.6-2.4); Phosphorus, Blood 2.0 mg/dL (2.5-4.9); Potassium, Blood 5.4 mmol/L (3.5-5.5); Sodium, Blood 128 mmol/L (136-145); Total Protein, Blood 8.2 g/dL (6.4-8.2)
[2024-10-24] MEDS ORDERED: Ondansetron HCl 2 MG / ML 2ML Vial IV ONE (09:55)
[2024-10-24] MEDS ORDERED: FentaNYL Citrate 50 MCG/ML 2 ML Injection IV ONE (09:55)
[2024-10-24] MEDS ORDERED: MetroNIDAZOLE 500MG/NS 100 ml 100 ML IV ONE (10:10)
[2024-10-24] MEDS ORDERED: Ciprofloxacin 400MG/D5 200ML 200 ML IV ONE (10:10)
[2024-10-24] MEDS ORDERED: CefTRIAXone Sodium 2,000 MG in NS 100 ML IV ONE (10:10)
[2024-10-24 12:21] LABS: Source, Urine Clean Catch
[2024-10-24 12:25] LABS: Bilirubin, Urine Neg (Neg); Color, Urine Yellow (P-Yellow); Glucose Qualitative, Urine 4+ (Neg); Ketones, Urine 3+ (Neg); Leukocyte Esterase, Urine Neg (Neg); Protein, Urine Neg (Neg); Specific Gravity, Urine 1.010 (1.003-1.022); Urobilinogen, Urine NORM (Normal)
[2024-10-24 13:14] LABS: U Amphetamine Screen Not Detected; U Barbituate Screen Not Detected; U Benzodiazapine Screen Not Detected; U Buprenorphine Screen Not Detected; U Cannabinoids Screen Not Detected; U Cocaine Screen Not Detected; U Methadone Screen Not Detected; U Methamphetamine Screen Not Detected; U Opiates Screen Not Detected; U Oxycodone Screen Not Detected; U Phencyclidine Screen Not Detected
[2024-10-24 15:16] VITALS: BP 150/89
[2024-10-24] MEDS ORDERED: CeFAZolin Sodium 2,000 MG in NS 100 ML IV SCH (16:00)
[2024-10-24] MEDS ORDERED: MetroNIDAZOLE 500MG/NS 100 ml 100 ML IV SCH (16:00)
[2024-10-24] MEDS ORDERED: HYDROcodone 5-APAP 325 TAB PO PRN (17:10)
[2024-10-24] MEDS ORDERED: FentaNYL Citrate 50 MCG/ML 2 ML Injection IV PRN (17:15)
--- NOTE | 2024-10-24 17:28 | NUR ---
SHIFT SUMMARY: THIS PATIENT ARRIVED TO MEDICAL FLOOR AT 1502. PATIENT ON TELE RUNNING SINUS TACH 100'S-130'S. PATIENT ORIENTED TO ROOM AND CALL SYSTEM. CEFLAZOLIN AND FLAGYL GIVEN. TYLENOL ORDERED FOR LOW GRADE FEVER. FENTANYL GIVEN FOR GENERALIZED BODY PAIN AND DISCOMFORT. PLAN FOR CONTINUED ANTIBIOTIC TREATMENT UNTIL RESOLVED. PLAN OF CARE ONGOING AT THIS TIME. WILL CONTINUE TO MONITOR.
--- NOTE | 2024-10-24 17:36 | NUR ---
ALL NEW MEDICATIONS ADMINISTERED AND TELEMETRY STRIPS REVIEWED BY THIS RN.
[2024-10-24] MEDS ORDERED: Cefepime HCl 2,000 MG in NS 100 ML IV SCH (18:00)
[2024-10-24] MEDS ORDERED: NS 250 ML IV SCH (18:20)
[2024-10-24 18:57] LABS: Anion Gap 14.0 mmol/L (3-11); Blood Urea Nitrogen 8.0 mg/dL (8-24); CO2, Blood 22.0 mmol/L (21-32); Calcium, Blood 8.3 mg/dL (8.5-10.1); Chloride, Blood 100.0 mmol/L (98-108); Creatinine, Blood 0.83 mg/dL (0.60-1.20); Glucose, Blood 173.0 mg/dL (70-99); Potassium, Blood 3.6 mmol/L (3.5-5.5); Sodium, Blood 132.0 mmol/L (136-145); Thyroid Stimulating Hormone 1.84 uIU/mL (0.360-4.800)
[2024-10-24 20:30] VITALS: BP 126/77
[2024-10-25] VITALS (18 sets, daily range): BP systolic 103–151; BP diastolic 59–101
--- NOTE | 2024-10-25 03:09 | NUR ---
ACCU CHECK FOR BLOOD SUGAR AT 0041 WAS 222; BLOOD SUGAR CHECKED AT PATIENT'S REQUEST. PT HAS AN INSULIN PUMP GOING AT BASAL RATE OF 2.65 UNITS [address]OUR. ADM[address] MADE NOT ON H&P AND AWARE. NO ORDER; WILL CONTACT HOSPITALIST TO DISCUSS. PT INSULIN PUMP--LISPRO. PT GAVE BOLUS OF 8 UNITS AT 0045. EDUCATED PT ON S/S OF HYPOGLYCEMIA; ADVISED TO LET NURSE KNOW IF SYMPTOMS OCCUR.
--- NOTE | 2024-10-25 04:30 | NUR ---
SHIFT SUMMARY ADMITTED FOR LEFT BUTTOCK ABSCESS/SEPSIS. FULL CODE. PLAN IS FOR I&D TODAY. IV ANTIB RX ARE SCHEDULED. TELEMETRY: NSR @ 93 BPM, TACHY WITH MOVEMENT/AMBULATION. INSULIN PUMP IMPLANT IN PLACE IS ACTIVE - 2.65 BASAL RATE . SURGICAL CONSULT IS DR. MIRZA. HE IS A&O X4, INDEPENDENT, ON RA, CONTINENT, ON ADA DIET. CIWA'S ARE 3 FOR ME THIS SHIFT. HE SEEMS ANXIOUS, FREQUENTLY ASKING FOR ME TO TEST HIS BLOOD SUGARS AND THEN DOSING HIMSELF VIA HIS INSULIN PUMP. HE REFUSES TO TURN OFF HIS PUMP. HOSPITALIST INFORMED. ORDER FOR INSULIN PUMP IS IN THE EMAR. HE HAS BEEN NPO SINCE MIDNIGHT.
[2024-10-25 05:07] LABS: BASOPHILS ABSOLUTE AUTO 0.04 K/mm3 (0.00-0.23); BASOPHILS PERCENT AUTO 0 % (0-2); EOSINOPHILS ABSOLUTE AUTO 0.12 K/mm3 (0.00-0.68); EOSINOPHILS PERCENT AUTO 1 % (0-6); Hematocrit 40.2 % (37.0-53.0); Hemoglobin 13.8 g/dL (13.5-17.5); IMMATURE GRAN ABSOLUTE AUTO 0.07 K/mm3 (0.00-0.10); IMMATURE GRAN PERCENT AUTO 1 % (0-1); LYMPHOCYTES ABSOLUTE AUTO 1.80 K/mm3 (0.84-5.20); LYMPHOCYTES PERCENT AUTO 15 % (21-46); MONOCYTES ABSOLUTE AUTO 1.79 K/mm3 (0.16-1.47); MONOCYTES PERCENT AUTO 15 % (4-13); Mean Corpuscular HGB Conc 34.3 g/dL (31.5-36.5); Mean Corpuscular Volume 91 fL (80-100); NEUTROPHILS ABSOLUTE AUTO 8.01 K/mm3 (1.96-9.15); NEUTROPHILS PERCENT AUTO 68 % (41-73); NRBC ABSOLUTE 0.00 K/mm3 (0.00-0.02); NRBC Auto 0.0 /100 WBC (0.0-0.2); Platelet Count 172 K/mm3 (150-400); RDW Coefficient Variation 12.5 % (11.7-14.2); RDW Standard Deviation 41.5 fL (35.1-46.3)
[2024-10-25 05:30] LABS: Anion Gap 9.0 mmol/L (3-11); Blood Urea Nitrogen 7.0 mg/dL (8-24); CO2, Blood 28.0 mmol/L (21-32); Calcium, Blood 8.1 mg/dL (8.5-10.1); Chloride, Blood 101.0 mmol/L (98-108); Creatinine, Blood 0.87 mg/dL (0.60-1.20); Glucose, Blood 131.0 mg/dL (70-99); Potassium, Blood 3.5 mmol/L (3.5-5.5); Sodium, Blood 134.0 mmol/L (136-145)
--- NOTE | 2024-10-25 06:09 | NUR ---
HOSPITALIST CONTACT THIS RN BECAME AWARE OF PT'S OWN INSULIN PUMP AT 0040 WHEN REQUESTED ACCU CHECK-SEE PREVIOUS NOTE CALL TO HOSPITALIST. SPOKE TO DR KENNEDY AT 0345. ADVISED PT HAS INSULIN PUMP WITH LISPRO SET AT BASAL MET RATE OF 2.65 UNITS PER HOUR. ADVISED OF HOSPITAL POLICY OF NEEDING AN OFFICAL ORDER AND PHARMACY TO VERIFY. ADVISED PT IS NPO AND WAS ADVISED TO TURN OFF BASAL RATE WHILE NPO AWAITING SURGERY. DR KENNEDY ORDERED OK TO USE INSULIN PUMP WITH BASAL RATE OF 2.65UNITS PER HOUR. DR JENKINS REENFORCE EDUCATION TO PT TO ADVISE TO TURN OFF BASAL RATE PRIOR TO SURGERY WITH BOLUS DOSE AFTER ACCU CHECK. PT WILL CONT AC/HS ACCU CHECK AND BOLUS PER HIGH SLIDING SCALE. RN TO OBSERVE INSULIN PUMP SITE AND DOCUEMNT ANY BOLUS DOSES TAKEN/REPORTED BY PATIENT. EDUCATED PATIENT AGAIN AFTER TALKING WITH DR KENNEDY. PT STATED HE TURN OFF BASAL RATE PRIOR TO SURGERY BUT IS CONCERNED IF HE TURNS IT OFF TOO EARLY BLOOD SUGARS WILL "GILES ROCKET" REENFORCED EDUCATION ON S/S OF HYPOGLYCEMIA AND IMPORTANCE OF NOTIFYING NURSE OF SYMPTOMS. PT AGREEABLE TO DOSING INSULIN AFTER ACCUCHECK'S ONLY AND AGREED TO REPORT INSULIN DOSE TO RN. WILL CONTINUE WITH SCHEDULED AND PRN ACCU CHECKS. PRIMARY NURSE NOTIFIED OF PATIENT AND HOSPITALIST INTERACTION AND EDUCATION.
--- NOTE | 2024-10-25 07:05 | NUR ---
BEDSIDE ORDER FROM DR IRVING: 500mL BOLUS OF LR AND CONTINUE @ 125mL/hr. PT C/O 01/05.
[2024-10-25] MEDS ORDERED: Vancomycin (Pharmacy Consult) IV PRN (07:30)
[2024-10-25] MEDS ORDERED: INSULIN LISPRO SC SCH (07:30)
[2024-10-25] MEDS ORDERED: Folic Acid 1 MG TAB PO SCH (09:00)
[2024-10-25] MEDS ORDERED: Vancomycin HCL 2,500 MG in NS 500 ML IV SCH (09:00)
[2024-10-25] MEDS ORDERED: Bupivacaine 0.5% HCl 5 MG/ML 30MLVIAL ONE (09:24)
[2024-10-25] MEDS ORDERED: FentaNYL Citrate 50 MCG/ML 2 ML Injection ONE (09:41)
[2024-10-25] MEDS ORDERED: Metoclopramide HCl 5MG / ML 2ML Vial IV PRN (09:45)
[2024-10-25] MEDS ORDERED: FentaNYL Citrate 50 MCG/ML 2 ML Injection IV PRN ×3 (09:45→09:50)
[2024-10-25] MEDS ORDERED: Midazolam HCl 1MG / ML 2ML Vial IV PRN (09:45)
[2024-10-25] MEDS ORDERED: HYDROmorphone HCl/Pf 1MG SYR IV PRN (09:50)
[2024-10-25] MEDS ORDERED: Ondansetron HCl 2 MG / ML 2ML Vial IV PRN (09:50)
--- NOTE | 2024-10-25 10:15 | NUR ---
PATIENT TO OR FOR I&D.
[2024-10-25] MEDS ORDERED: Ketorolac Tromethamine 30mg Vial ONE (10:24)
[2024-10-25] MEDS ORDERED: Ondansetron HCl 2 MG / ML 2ML Vial ONE (10:24)
[2024-10-25] MEDS ORDERED: Dexamethasone Sod Phos 10 MG/ML 1ML VIAL ONE (10:24)
--- NOTE | 2024-10-25 18:23 | NUR ---
END OF SHIFT SUMMARY: A&Ox4. PLEASANT AND COOPERATIVE WITH CARE. CALLS APPROPRIATELY AND IS ABLE TO ADVOCATE NEEDS EFFECTIVELY. CONTINENT OF BOWEL AND BLADDER; LBM TODAY. AMBULATES INDEPENDENTLY. MEDS WHOLE c FLUIDS. PAIN 10 / 10 PRIOR TO SURGERY. 0 / 10 POST-OP I&D 6cm PERIRECTAL ABSCESS. TELE CONTINUES TO RUN TACHY, ESPECIALLY c ACTIVITY. NOTIFIED BY LAB OF POSITIVE BLOOD Cx GRAM+ COCCI IN CLUSTERS. SECOND SET AND WOUND Cx PENDING THOUGH PRELIM IS INDICATIVE OF GRAM POSITIVE COCCI. AC/HS CHECK; CONTINUES TO COVER c OWN INSULIN PUMP. MOM @ BEDSIDE MUCH OF DAY. CIWA SCORES 1-3 ALL DAY WITH DIAPHORESIS BEING ONLY NOTABLE SYMPTOM. BED IN LOWEST POSITION, CALL LIGHT WITHIN REACH, ALL NEEDS MET. REPORT TO ONCOMING NURSE.
--- NOTE | 2024-10-25 21:48 | NUR ---
PATIENT INSULIN PATIENT HAS HIS OWN INSULIN PUMP. HE SELF ADMINISTERS HIS OWN INSULIN. HE HAS MANAGED HIS OWN INSULIN FOR MANY YEARS. HE WILL NOT COMPLY WITH OUR SLIDING SCALE. HOSPITALIST IS INFORMED
[2024-10-26 03:31] VITALS: BP 125/82
--- NOTE | 2024-10-26 04:18 | NUR ---
SHIFT SUMMARY ADMITTTED FOR ABSCESS/SEPSIS. FULL CODE. IV ANTIB RX ARE SCHEDULED. I&D PERFORMED YESTERDAY, SILICONE LOOP DRAIN IN PLACE. TELEMETRY: NSR @ 90 BPM. ON RA, ADA DIET, ACHS CBG'S. HE HAS AN INSULIN PUMP AND HE ADMINISTERS HIS OWN INSULIN, NOT ACCORDING TO OUR INSULIN SCALE. HOSPITALIST IS AWARE. HE IS INDEPENDENT IN ROOM AND CONTINENT. WOUND DRESSINGS CHANGED THIS SHIFT BY THE PATIENT HIMSELF AT HIS INSISTENCE.
--- NOTE | 2024-10-26 04:39 | NUR ---
PT REFUSING LAB DRAW UNTIL "A LITTLE LATER" PER LAB PERSONNEL. THEY WILL COME BACK AND TRY AGAIN AROUND 0700.
[2024-10-26 07:49] VITALS: BP 136/91
[2024-10-26 08:01] LABS: BASOPHILS ABSOLUTE AUTO 0.04 K/mm3 (0.00-0.23); BASOPHILS PERCENT AUTO 0 % (0-2); EOSINOPHILS ABSOLUTE AUTO 0.01 K/mm3 (0.00-0.68); EOSINOPHILS PERCENT AUTO 0 % (0-6); Hematocrit 42.2 % (37.0-53.0); Hemoglobin 14.3 g/dL (13.5-17.5); IMMATURE GRAN ABSOLUTE AUTO 0.16 K/mm3 (0.00-0.10); IMMATURE GRAN PERCENT AUTO 1 % (0-1); LYMPHOCYTES ABSOLUTE AUTO 1.30 K/mm3 (0.84-5.20); LYMPHOCYTES PERCENT AUTO 9 % (21-46); MONOCYTES ABSOLUTE AUTO 1.61 K/mm3 (0.16-1.47); MONOCYTES PERCENT AUTO 11 % (4-13); Mean Corpuscular HGB Conc 33.9 g/dL (31.5-36.5); Mean Corpuscular Volume 90 fL (80-100); NEUTROPHILS ABSOLUTE AUTO 11.34 K/mm3 (1.96-9.15); NEUTROPHILS PERCENT AUTO 78 % (41-73); NRBC ABSOLUTE 0.00 K/mm3 (0.00-0.02); NRBC Auto 0.0 /100 WBC (0.0-0.2); Platelet Count 251 K/mm3 (150-400); RDW Coefficient Variation 12.6 % (11.7-14.2); RDW Standard Deviation 41.9 fL (35.1-46.3)
[2024-10-26 08:20] LABS: Anion Gap 11.0 mmol/L (3-11); Blood Urea Nitrogen 11.0 mg/dL (8-24); CO2, Blood 22.0 mmol/L (21-32); Calcium, Blood 8.5 mg/dL (8.5-10.1); Chloride, Blood 105.0 mmol/L (98-108); Creatinine, Blood 0.71 mg/dL (0.60-1.20); Glucose, Blood 211.0 mg/dL (70-99); Potassium, Blood 3.9 mmol/L (3.5-5.5); Sodium, Blood 134.0 mmol/L (136-145)
--- NOTE | 2024-10-26 09:15 | NUR ---
ASSUMPTION OF CARE: THIS RN ASSUMED CARE OF PATIENT FOR THIRD DAY. ACCOMPANIED BY ORIENTING DRU GOMEZ. AWAKE DURING SHIFT CHANGE REPORT. LYING IN BED / CHAIR c HOB ELEVATED. BREATHING EVEN AND UNLABORED c ROOM AIR. LR @ 125mL/hr CONTINUOUSLY. MOST RECENT TELE STRIP IN CHART READS SINUS RHYTHM @ 80bpm. DR. IRVING TO BEDSIDE; AWAITING FINAL REPORT FOR CULTURE. DR. FORREST TO BEDSIDE: SURGICAL PACKING REMOVED AND ENCOURAGED PT TO SHOWER. NOTED TO HAVE LOOP-STYLE DRAIN IN PLACE. PT SHOWERED AND GIVEN WOUND CARE PRODUCTS. BED IN LOWEST POSITION. CALL LIGHT WITHIN REACH. ACUTE NEEDS MET.
[2024-10-26] MEDS ORDERED: Cefadroxil500 MG PO (13:15)
--- NOTE | 2024-10-26 17:00 | NUR ---
DISCHARGE NOTE: A&OX4 PRIOR TO D/C. PT SELF PERFORMING CARE FOR WOUND DRESSING CHANGES AND INSULIN. MEDICATIONS FAXED TO PHARMACY OF PT PREFERENCE. IV AND TELE REMOVED. DISCHARGE INSTRUCTIONS PROVIDED TO PT AND HE WAS SENT HOME WITH PACKET. DECLINED STAFF ESCORT WITH W/C OUT OF BUILDING. SELF AMBULATED OUT WITH RIDE.
== END 2024-10-26 15:23 | disposition home or self-care (01) | DRG 871 ==
LOC: ER 07:54 → ERHOLD 11:53 → MEDS 11:53
PROVIDERS: Student in an Organized Health Care Education/Training Program; ADMIT Internal Medicine
DX: A41.9 Sepsis, unspecified organism (principal); E10.10 Type 1 diabetes mellitus with ketoacidosis without coma; K61.1 Rectal abscess; L03.317 Cellulitis of buttock; R65.20 Severe sepsis without septic shock; F10.10 Alcohol abuse, uncomplicated; D69.6 Thrombocytopenia, unspecified; I10 Essential (primary) hypertension; F41.9 Anxiety disorder, unspecified; F32.A Depression, unspecified; Z98.890 Other specified postprocedural states; Z79.4 Long term (current) use of insulin; Z79.899 Other long term (current) drug therapy; K21.9 Gastro-esophageal reflux disease without esophagitis; E10.65 Type 1 diabetes mellitus with hyperglycemia; E66.9 Obesity, unspecified; Z88.0 Allergy status to penicillin
CPT/HCPCS: 36415; 71046; 72193; 80048; 80053; 80320; 81003; 82010; 82803; 82947; 83605; 83735; 84100; 84443; 85025; 87040; 87070; 87075; 87076; 87077; 87147; 87205; 93005; 93010; 96361; 96365-59; 96367; 96374-59; 99285-25; A9270; J0690; J0692; J0696; J0744; J1100; J1885; J2250; J2405; J2704; J3010; J3373; J7030; J7040; J7050; J7120; Q9967